=== PATIENT | female | born 1985 | race Caucasian/White ===

== ENCOUNTER 2018-12-08 11:24 | Day surgery (SDC) | payer BC ==
[~2018-12-08] VITALS: Ht 147.3 cm; Wt 81.6 kg
[2018-12-08 12:07] LABS: BASOPHILS % 0.2 % (0.0-2.0); EOSINOPHILS % 1.6 % (0.0-5.0); HEMATOCRIT. 41.3 % (36.0-48.0); HEMOGLOBIN. 13.9 g/dL (12.0-16.0); LYMPHOCYTES % 26.7 % (20.0-50.0); MEAN CORPUSCULAR HEMOGLOBIN 28.9 pg (28.0-32.0); MEAN CORPUSCULAR VOLUME 86.1 fL (81.0-99.0); MEAN PLATELET VOLUME 8.6 fl (7.4-10.4); NEUTROPHILS % 66.5 % (40.0-76.0); PLATELET 293 x1000/uL (130-400); RED CELL DISTRIBUTION WIDTH 14.1 % (11.6-14.6)
[2018-12-08 12:22] LABS: UCG SCREEN NEGATIVE
[2018-12-08] MEDS ORDERED: FENTANYL CITRATE/PF 50MCG/ML 2ML VIAL ONE (12:24)
[2018-12-08] MEDS ORDERED: ROCURONIUM BROMIDE 10MG/ML VIAL 5ML IV ONE (12:24)
[2018-12-08] MEDS ORDERED: PROPOFOL 200MG/20ML VIAL IV ONE (12:24)
[2018-12-08] MEDS ORDERED: MIDAZOLAM HCL 2 MG/2 ML VIAL ONE (12:25)
[2018-12-08] MEDS ORDERED: METOCLOPRAMIDE HCL 10MG/2ML VIAL ONE (12:26)
[2018-12-08] MEDS ORDERED: PHENYLEPHRINE HCL 10 MG/ML 1ML (IV VIAL) IV ONE (12:26)
[2018-12-08] MEDS ORDERED: SUCCINYLCHOLINE CHLORIDE 200MG/10ML IV ONE (12:26)
[2018-12-08] MEDS ORDERED: ONDANSETRON HCL 4MG/2ML INJ ONE (12:26)
[2018-12-08] MEDS ORDERED: LACTATED RINGERS 1,000 ML IV SCH (12:30)
[2018-12-08] MEDS ORDERED: ACET-2708 PO (12:41)
[2018-12-08] MEDS ORDERED: DICL50TA7 PO (12:41)
[2018-12-08] MEDS ORDERED: SULF500T8 PO (12:41)
[2018-12-08] MEDS ORDERED: AZAT50TA24 PO (12:41)
[2018-12-08] MEDS ORDERED: MENT118G TP (12:41)
[2018-12-08] MEDS ORDERED: HYDROCODONE/ACETAMINOPHEN 10/325MG TABLET PO PRN (13:30)
[2018-12-08] MEDS ORDERED: KETOROLAC 30MG/ML VIAL ONE (13:38)
[2018-12-08] MEDS ORDERED: ONDANSETRON HCL 4MG/2ML INJ IV PRN (14:00)
[2018-12-08] MEDS ORDERED: HYDROMORPHONE HCL/PF 2MG/ML CPJ IV PRN (14:00)
[2018-12-08] MEDS ORDERED: MORPHINE SULFATE 4 MG/ML CPJ (NOT FOR IM USE) IV PRN (14:00)
[2018-12-08] MEDS ORDERED: MEPERIDINE HCL/PF 25MG/ML CPJ IV PRN (14:00)
[2018-12-08] MEDS: FENTANYL CITRATE/PF 50MCG/ML 2ML VIAL IV PRN ×2 (14:10→14:41)
[2018-12-08 15:32] VITALS: BP 122/102
== END 2018-12-08 19:30 | disposition home or self-care (01) ==
LOC: OR 11:24
PROVIDERS: ATTEND Orthopaedic Surgery
DX: M24.662 Ankylosis, left knee (principal); M22.42 Chondromalacia patellae, left knee; M06.9 Rheumatoid arthritis, unspecified; Z98.890 Other specified postprocedural states
CPT/HCPCS: 27570; 36415; 81025; 85025; 97116; 97161; J0330; J1885; J2250; J2370; J2405; J2704; J2765; J3010; J3490